=== PATIENT | male | born 1970 | race Two or more races ===

== ENCOUNTER 2018-06-03 23:26 | Emergency (ER) | payer SELFPAY ==
[2018-06-03 23:29] VITALS: TEMP 97.9; O2SAT 97
--- NOTE | 2018-06-04 01:08 | ED PDOC ---
HPI: Psych/Substance Abuse Time Seen by Provider: 06/03/18 23:47 Chief Complaint (Nursing): Medical Clearance Chief Complaint (Provider): Medical Clearance ED Caveat: Uncooperative History Per: Patient History/Exam Limitations: no limitations Current Symptoms Are (Timing): Still Present Additional Complaint(s): 47 year old male presents to the ED via [facility] for medical and psychiatric clearance for incarceration. When asked "why are you here today?", patient responded "I am here because I did not get laid" and then asked "Is pussy a drug?". Since patient has made several sexual comments to staff. Limited history due to patient being uncooperative. Offers no medical complaints. PMD: none provided Past Medical History Reviewed: Historical Data, Nursing Documentation, Vital Signs, Unable To Obtain Vital Signs: Last Vital Signs Temp 97.9 F 06/03/18 23:27 Pulse 70 06/03/18 23:27 Resp BP Pulse Ox 97 06/03/18 23:27 - Surgical History Surgical History: No Surg Hx - Family History Family History: States: Unknown Family Hx - Allergies Allergies/Adverse Reactions: Allergies Allergy/AdvReac Type Severity Reaction Status Date / Time No Known Allergies Allergy Verified 06/04/18 00:50 Review of Systems ROS Statement: Except As Marked, All Systems Reviewed And Found Negative Physical Exam - Reviewed Nursing Documentation Reviewed: Yes Vital Signs Reviewed: Yes - Physical Exam Appears: Positive for: No Acute Distress Head Exam: Positive for: ATRAUMATIC, NORMAL INSPECTION, NORMOCEPHALIC Skin: Positive for: Normal Color, Warm, Dry. Negative for: Rash Eye Exam: Positive for: EOMI, Normal appearance, PERRL Neck: Positive for: Normal, Painless ROM, Supple Cardiovascular/Chest: Positive for: Regular Rate, Rhythm. Negative for: Murmur Respiratory: Positive for: Normal Breath Sounds. Negative for: Respiratory Distress Extremity: Positive for: Normal ROM (x 4). Negative for: Deformity Neurologic/Psych: Positive for: Alert, Oriented. Negative for: Motor/Sensory Deficits - ECG O2 Sat by Pulse Oximetry: 97 (RA) Pulse Ox Interpretation: Normal Medical Decision Making Medical Decision Makin:50 --Patient will be evaluated by crisis for psychiatric clearance. 00:50 --Patient was evaluated by crisis and will be discharged with adjustment disorder as per Dr. Hagen. --He is medically and psychiatrically cleared for incarceration. Scribe Attestation: Documented by Elaina Lutz acting as a scribe for Ruben Valentine MD Provider Scribe Attestation: All medical record entries made by the Scribe were at my direction and personally dictated by me. I have reviewed the chart and agree that the record accurately reflects my personal performance of the history, physical exam, medical decision making, and the department course for this patient. I have also personally directed, reviewed, and agree with the discharge instructions and disposition. Disposition - Clinical Impression Clinical Impression: Adjustment disorder - Patient ED Disposition Is Patient to be Admitted: No Counseled Patient/Family Regarding: Studies Performed, Diagnosis - Disposition Disposition: Routine/Home Disposition Time: 01:15 Condition: IMPROVED Additional Instructions: follow up with outpatient services return to the ED with any worsening or concerning symptoms patient is medically and psychiatrically cleared for incarceration Instructions: Adjustment Disorder, General (DC) Forms: [employer] (Macedonian)
[2018-06-04 01:26] VITALS: BP 127/83; PULSE 65; RESP 17
== END 2018-06-04 01:11 ==
LOC: H.ER 23:26
DX: F43.20 Adjustment disorder, unspecified (principal)